=== PATIENT | male | born 1990 | race Two or more races ===

== ENCOUNTER 2019-03-31 15:19 | Emergency (ER) | payer BC ==
[~2019-03-31] VITALS: Ht 170.2 cm; Wt 89.4 kg
[2019-03-31] MEDS ORDERED: GADOTERATE 10 MMOL/20 ML SYR ONE (16:33)
--- NOTE | 2019-03-31 19:05 | NUR ---
TASK RN: FIRST CONTACT WITH PT. PT S[place] UP [place], [place] NOTED. PWD. PT REPORTS SUDDEN ONSET R SIDED WEAKNESS/NUMBNESS AND PULSATING FRONTAL SANCHEZ X 0730 THIS AM. +NAUSEA. PT REPORTS RESOLUTION OF WEAKNESS/NUMBNESS AT THIS TIME AND MILD 4/10 SANCHEZ. DENIES VOMITING/PHOTOPHOBIA/PHONOPHOBIA/TRAUMA. HX OF MIGRAINES, UNLIKE TODAY'S SYMPTOMS. GENERALLY RESOLVE WITH "EXCEDRINE AND VOMITTING". GROSS NEURO INTACT. FACE SYMMETRICAL, SPEECH CLEAR, +STRENGTH X 4. BP/SPO2 MONITORING IN PLACE. FAMILY AT BEDSIDE.
--- NOTE | 2019-03-31 19:33 | NUR ---
TASK RN: PT UPDATED TO POC BY ERP (US/RECHECK/DISPO) AND DEMONSTRATES UNDERSTANDING.
--- NOTE | 2019-03-31 20:12 | NUR ---
PT IN US
[2019-03-31 20:49] VITALS: BP 114/83
--- NOTE | 2019-03-31 20:49 | NUR ---
PT REPORTS HE IS READY FOR DC. PT DISCHARGED PER DR NGUYEN.
--- NOTE | 2019-03-31 20:55 | NUR ---
PT REFUSED PAIN MEDS. PT WANTED TO BE DC'D AND GO HOME.
== END 2019-03-31 20:52 ==
LOC: ED 20:46
DX: M62.81 Muscle weakness (generalized) (principal); R51 Headache; R42 Dizziness and giddiness
CPT/HCPCS: 70553; 93005; 93880; 99285; A9575